=== PATIENT | female | born 1980 | race Caucasian/White ===

== ENCOUNTER 2017-03-08 05:15 | Day surgery (SDC) | payer OTHER ==
[2017-03-05 12:05] LABS: BASOPHILS 0.5 % (0-2); EOSINOPHILS 0.9 % (0-7); HEMATOCRIT 41.3 % (36.0-48.0); HEMOGLOBIN 13.8 g/dL (12-16); IMMATURE GRANULOCYTES 0.1 % (0-5); LYMPHOCYTES 38.4 % (15-50); MCH 29.6 pg (26.0-34.0); MCHC 33.4 g/dL (31.0-37.0); MCV 88.4 fL (80.0-100.0); MEAN PLATELET VOLUME 10.3 fL (7.4-10.4); MONOCYTES 6.4 % (2-11); NEUTROPHILS 53.7 % (40-80); PLATELET COUNT 263 10x3/uL (130-400); RBC 4.67 10x6/uL (4.00-5.40); RDW 14.1 % (11.5-14.5); WBC 7.8 10x3/uL (4.8-10.8)
[2017-03-05 12:15] LABS: APPEARANCE HAZY (CLEAR); COLOR YELLOW (YELLOW)
[2017-03-05 12:16] LABS: BACTERIA MODERATE /hpf (NONE SEEN); BILIRUBIN NEGATIVE (NEGATIVE); GLUCOSE NEGATIVE (NEGATIVE); KETONE NEGATIVE (NEGATIVE); NITRITE NEGATIVE (NEGATIVE); PROTEIN NEGATIVE (NEGATIVE); RED CELLS - URINE 0-5 /hpf (0-5); UROBILINOGEN NORMAL (NORMAL)
[2017-03-05 12:21] LABS: CALC OSMOLALITY 272 mosm/kg (275-300); CALCIUM 9.6 mg/dL (8.5-10.1); CARBON DIOXIDE 29.8 mmol/L (21.0-32.0); CHLORIDE - SERUM 100 mmol/L (98-107); CREATININE - SERUM 0.8 mg/dL (0.6-1.3); GLUCOSE 98 mg/dL (74-106); POTASSIUM - SERUM 3.9 mmol/L (3.5-5.1); SODIUM 136 mmol/L (136-145); UREA NITROGEN 14 mg/dL (7-18); eGFR NON AFRICAN AMERICAN 85 mL/min (90-120)
[2017-03-08 05:47] VITALS: BP 121/66; BMI 34.4
[2017-03-08 06:05] LABS: HCG URINE NEGATIVE (NEGATIVE)
--- NOTE | 2017-03-08 09:32 | NUR ---
0745: DR BIRD IN ROOM, POSTIONED PATIENTS LEGS IN STIRUPS.
--- NOTE | 2017-03-08 10:15 | NUR ---
Pt received to room by bed from recovery, drowsy but does respond to her name and can answer correctly when asked for her birthday. Vss as charted on flowsheet. IV to left ac infusing per order. Abdomen soft to touch with 3 small bandaid noted to umbilical area, lower left quad and right of umbilical. bandage at umbilical center weeping clear fluid, area cleaned with bandage left in place but covered with 4x4 to access further discharge. Gown and top sheet changed at this time and family allowed to room.
[2017-03-08 10:28] VITALS: BP 111/54
--- NOTE | 2017-03-08 10:30 | NUR ---
SCD's bilat and pump turned on. Morphine home health clinical supervisor started and pt demonstrates understanding of use. Rates pain at 10/10 at this time. Ice pack to left lower abd per her request and positioned to that side. side rails up x 2 with phone and call light in reach. Pt mother in law remains at her side. small cup of ice water provided due to no complaint of nausea.
--- NOTE | 2017-03-08 11:30 | NUR ---
Pt is still very drowsy but responds when being spoken to, rates pain at 5/10 at this time. 200ml to liang bag since arrival to room. denies nausea and ask for a sprite to drink. Bed in low position with side rails up x 2 and call light in reach. family at bedside.
--- NOTE | 2017-03-08 12:18 | NUR ---
Called to room, pt asking for assistance to reposition to right lateral. additional pillows used for added comfort. Pt had NC in place at 2L from recovery which is removed at this time. maintains O2 of 98%. Lights out, call light in reach.
--- NOTE | 2017-03-08 13:45 | NUR ---
Pt is more awake but complains of feeling "sleepy" she is tolerating the sprite and water without complaint of nausea but denies wanting anything more at this time. Repositioned to left lateral at which time underpad is noted to be saturated with serous sang fluid that appears to be from vaginal area, verified that liang is still in place. Lashaun care per this rn, pink pad and chux changed pt able to lift her bottom, gown also changed. She is able to turn herself and denies any needs at this time.
[2017-03-08 14:07] VITALS: BP 102/59
--- NOTE | 2017-03-08 14:18 | NUR ---
Pt resting on left side with eyes closed and resp even left undisturbed do to no distress noted. call light with in her reach and side rails up x 2.
--- NOTE | 2017-03-08 15:55 | NUR ---
Called to room with complaint of nausea, cold wet wash cloth provided, tilted to her side and head of bed elevated per request also provided with blue bag. states she is feeling better with slight position change. will call if feels sick again.
--- NOTE | 2017-03-08 17:59 | NUR ---
Upon entering room pt is sitting up in bed positioned on her back, she complains of increase nausea, suggested that she tilt off her back to decrease that feeling. Tilts to left side per self with verbal relief. New bag of LR 1000ml hung per orders and ivac volumes cleared. Del Valle cath remains inplace to gravity flow, emptied 1500ml clear urine. No vaginal discharge at this time, parish pads are clean and dry. Pt rates her pain at 2/10 and request something to eat, clear liquid tray ordered.
--- NOTE | 2017-03-08 18:30 | NUR ---
clear liquid tray per dietary
[2017-03-08 19:23] VITALS: BP 115/75
--- NOTE | 2017-03-08 19:23 | NUR ---
RN TO PT BS FOR STEPHY. PT RESTING IN BED IN HIGH FOWLERS POSITION, IN NO ACUTE DISTRESS. RESPIRATIONS EVEN AND UNLABORED. PT IS A 36YO FEMALE S/P LAVH TODAY WITH DR. BIRD. AAOX3. HR REGULAR AT THIS TIME WITH OCCASIONAL TACHYCARDIA NOTED. LUNGS CTAB. ABDOMEN SOFT AND NON TENDER. BS HYPOACTIVE TIMES 4. PT STATES SHE IS PASSING GAS AND IS BELCHING. 3 LAPROSCOPIC INCISIONS NOTED TO ABDOMEN. BANDAIDS IN PLACE. INCISION @ UMBILICUS WITH PRESSURE DRESSING APPLIED BY AM SHIFT. SMALL AMOUNT OF WATERY BLOOD TINGED DRAINAGE NOTED FROM VAGINA. HASSAN IN PLACE AND DRAINING CLEAR YELLOW URINE. SCD'S IN PLACE TO LOWER EXTREMITIES BILATERALLY. NO SWELLING NOTED TO UPPER OR LOWER EXTREMITIES BILATERALLY. LR INFUSING VIA PUMP AT 125 CC/HR AND MORPHINE FREELANCE WRITER INFUSING VIA PUMP TO EXISTING 22G IV IN LEFT AC. NO REDNESS OR EDEMA NOTED TO SITE. PT C/O NAUSEA AT THIS TIME. ZOFRAN 4MG PROVIDED IVP. PT ATTEMPTING TO TOLERATE CLEAR LIQUID DIET BUT IS HAVING DIFFICULTY WITH NAUSEA AND VOMITTING WHEN EATING. ENCOURAGED PT TO TAKE SMALL SIPS, VERBALIZED UNDERSTADING. PT RATES PAIN 2/10 AT THIS TIME. BED IN LOW POSITION, SIDE RAILS UP TIMES 2, CALL LIGHT AND PHONE IN REACH. NO FAMILY AT THIS BEDSIDE AT THIS TIME. WILL CONT TO MONITOR PT STATUS.
[2017-03-08 19:30] VITALS: BP 102/59; BMI 34.4
--- NOTE | 2017-03-08 21:00 | NUR ---
RN TO PT BS. PT TURNED AND SUPPORTED TO RIGHT TILT POSITION. CHUX AN TOWEL CHANGED. SMALL AMOUNT OF BLOOD TINGED WATERY DISCHARGE NOTED. PT DENIES ANY FURTHER NEEDS AT THIS TIME. BED IN LOW POSITION, SIDE RAILS UP TIMES 2, CALL LIGHT AND PHONE IN REACH. WILL CONT TO MONITOR PT STATUS.
--- NOTE | 2017-03-08 21:28 | NUR ---
PT. CALLED REQUESTING ASSISTANCE TO TURN. MINIMAL ASSISTANCE TO TURN FROM BACK TO LT SIDE. POSITIONED WITH PILLOWS. PT. STATES SHE IS UNCOMFORTABLE AND HAS ALREADY PUSHED TRAFFIC SIGNAL SUPERVISOR MAINTENANCE BUTTON. STATES SHE THINKS POSITION CHANGE WILL HELP.
[2017-03-08 23:15] VITALS: BP 129/65
--- NOTE | 2017-03-08 23:16 | NUR ---
RN TO PT BS. VS TAKEN, WNL. I&O'S PERFORMED, WNL. PT ASSISTED TO TURN AND SUPPORT TO BACK. PT POSITIONED FOR COMFORT. PT DENIES ANY NEEDS AT THIS TIME. BED IN LOW POSITION, SIDE RAILS UP TIMES 2, CALL LIGHT AND PHONE IN REACH. WILL CONT TO MONITOR PT STATUS.
--- NOTE | 2017-03-09 00:29 | NUR ---
RN TO PT BS FOR ROUNDS. PT RESTING IN BED IN SEMI-FOWLERS POSITION, IN NO ACUTE DISTRESS. PT DENIES ANY NEEDS AT THIS TIME. BED IN LOW POSITION, SIDE RAILS UP TIMES 2, CALL LIGHT AND PHONE IN REACH. WILL CONT TO MONITOR PT STATUS.
--- NOTE | 2017-03-09 02:38 | NUR ---
RN TO PT BS. PT RESTING IN BED IN SEMI-FOWLERS POSITION, IN NO ACUTE DISTRESS. NEW BAG OF LR HUNG TO INFUSE VIA PUMP AT 125CC/HR. MORPHINE ELECTRONICS TECHNICIAN APPRENTICE SYRINGE CHANGED. APPLE JUICE PROVIDED TO PT AT THIS TIME. ASSISTED PT IN POSITIONING SELF IN BED. PT DENIES ANY FURTHER NEEDS AT THIS TIME. BED IN LOW POSITION, SIDE RAILS UP TIMES 2, CALL LIGHT AND PHONE IN REACH. WILL CONT TO MONITOR PT STATUS.
--- NOTE | 2017-03-09 04:04 | NUR ---
RECEIVED CALL FROM DR. BIRD. PER , D/C HASSAN AT THIS TIME AND D/C MORPHINE DIGITAL CARTOGRAPHER. PT MAY HAVE PERCOCET 5 FOR MODERTE PAIN AND PERCOCET 10 FOR SEVERE PAIN. PT TO AMBULATE WHEN NEED ARISES TO VOID. ORDERS PLACED AND NOTED.
[2017-03-09 04:48] VITALS: BP 114/66
--- NOTE | 2017-03-09 04:49 | NUR ---
RN TO PT BS. POC DISCUSSED WITH PT AND QUESTIONS ANSWERED. VS TAKEN, WNL. HASSAN REMOVED, TIP INTACT, 1600 CC CLEAR YELLOW URINE EMPTIED FROM BAG. IV SALINE LOCKED, MORPHINE RICE CLEANING MACHINE TENDER D/C'D. PAIN MEDICATION SCHEDULE DISCUSSED WITH PT, QUESTIONS ANSWERED. PT AMBULATED TO BR WITH MINIMAL ASSISTANCE. PT UNABLE TO VOID AT THIS TIME. PT CLEANED SELF WITH WET WASHCLOTHES. CECI PAD AND PANTIES PLACED. CLEAN GOWN PLACED. COMPLETE LINEN CHANGE TO BED BY RN. PT AMBULATED TO BED WITH MINIMAL ASSISTANCE. PT DESIRES TO SIT ON EDEGE OF BED. FRESH SPRITE PROVIDED TO PT AND SALITINES PROVIDED TO PT AT THIS TIME. PT DENIES ANY FURTHER NEEDS. BED IN LOW POSITION, SIDE RAILS UP TIMES 2, CALL LIGHT AND PHONE IN REACH. WILL CONT TO MONITOR PT STATUS.
--- NOTE | 2017-03-09 05:08 | NUR ---
RN TO PT BS FOR ROUNDS. PT RESTING IN BED IN LEFT TILT POSITION, IN NO ACUTE DISTRESS. PT ASSISTED WITH COMFORT IN BED. PT DENIES ANY FURTHER NEEDS AT THIS TIME. BED IN LOW POSITION, SIDE RAILS UP TIMES 2, CALL LIGHT AND PHONE IN REACH. WILL CONT TO MONITOR PT STATUS.
--- NOTE | 2017-03-09 07:04 | NUR ---
PT CALLS ON LIGHT. STATES VOIDED. 200 ML OF BLOOD-TINGED URINE NOTED IN SPECIPAN. PT C/O RIGHT SIDE PELVIC PAIN OF "8" ON 0-10 PAIN SCALE. PERCOCET 10/325 GIVEN PO ORDERED. PT INSTRUCTED ON MED. VERBALIZES UNDERSTANDING.
[2017-03-09 07:13] VITALS: BP 105/57
--- NOTE | 2017-03-09 07:23 | NUR ---
ASSESSMENT DONE. VERBAL RESPONSES APPRO TO QUESTIONS. PT STATES WAS UP TO BATHROOM - EMPTIED 200 CC URINE FROM CONTAINER. BREAKSFAST SERVED- PT SITS ON SIDE OF BED TO EAT BREAKFAST.
--- NOTE | 2017-03-09 07:34 | OP ---
PATIENT NAME: DANIELLE MEJIA MEDICAL RECORD: [id number] :76 LOCATION:[id number] ADMISSION DATE: SURGEON: FREDDIE BIRD MD DATE OF OPERATION: 03/08/2017 PREOPERATIVE DIAGNOSIS: Chronic pelvic pain. POSTOPERATIVE DIAGNOSIS: Active endometriosis, peritoneum. PROCEDURE PERFORMED: Laparoscopically-assisted vaginal hysterectomy with bilateral salpingo-oophorectomy. SURGEON: Freddie Bird MD APPLICATION INTEGRATION SPECIALIST: Dr. Chery SECURITY PUBLIC SAFETY OFFICER: Dg Quintanilla ANESTHESIOLOGIST: Dr. Pagan ANESTHESIA: General anesthetic with endotracheal intubation. FINDINGS: Uterus is retroverted and otherwise unremarkable. Tubes and ovaries are unremarkable. Active endometriosis is noted on the peritoneum. SPECIMENS REMOVED: Uterus with tubes and ovaries. Specimen disposition, pathology. ESTIMATED BLOOD LOSS: 300 cc. FLUIDS: 900cc lactated Ringer's. URINE OUTPUT: Quantity sufficient prior to the procedure, catheter placed post-procedure. COMPLICATIONS: None. DRAINS: Del Valle to gravity. INDICATIONS: The patient is a 36-year-old female with undesired fertility. Conservative management for pelvic pain, which has failed. The patient has a previous diagnostic laparoscopy showing active endometriosis. The patient has been counseled and has been offered medical management. The patient desires definitive treatment for pelvic pain and a history of endometriosis. DESCRIPTION OF PROCEDURE: After informed consent was assured, the patient was taken to the operating room, anesthetic was obtained without difficulty. The patient was prepped and draped in the usual sterile fashion after being placed in Bin stirrups. Incision was made in the umbilicus to accommodate a 5-mm trocar, which was inserted without difficulty. The pneumoperitoneum was developed and the patient was placed in Trendelenburg position. Accessory ports were placed in right and left lower quadrants. Through the right lower quadrant port, a grasper was introduced and the ovary elevated on the left side. The infundibulopelvic ligament was serially compressed, coagulated, and with PK technology gyrus dissector. This dissection was carried out underneath OPERATIVE REPORT [id number] DANIELLE MEJIA the ovary across the round ligaments and the broad ligament was opened. The anterior leaf of the broad ligament was opened and the bladder flap developed across the midline. The posterior leaflet was opened and dissection was discontinued. The dissection begins on the right. With the right tube elevated from the left, infundibulopelvic ligament was compressed, coagulated, and . The dissection again was carried out under the ovary across the round ligament, then to the level of the internal os. The bladder flap was now fully developed and then attention was directed to the vagina. With a sterile sheet covering the instruments on the abdomen, the legs were positioned and the weighted speculum introduced in the vagina. Barbara tenaculums were used to grasp the cervix and using Bovie cautery the mucosa overlying the cervix was opened. This opening circled the cervix. The posterior cul-de-sac was now entered sharply with scissors and a stitch applied to the peritoneum to the mucosa. Using Eric clamps, the uterosacral ligaments were isolated in the right and left side. These were tied with a Eric stitch and held in hemostats to be used later in the procedure. Attention was directed anteriorly where the bladder was mobilized and anterior pouch entered. The remaining portion of the cardinal ligaments serially clamped, cut and tied until the last pedicle was reached. At this point, a [id number] stitch was applied to obtain hemostasis on both right and left sides. The peritoneum was then reapproximated to the mucosa using 3-0 Vicryl. After this was performed, 0 Vicryl was now used to close the cuff in an interrupted fashion from anteriorly to posteriorly. Once the level of the uterosacral ligaments were reached, a stitch was passed through the posterior cuff through the left uterosacral ligament across the peritoneum of the cul-de-sac out through the right uterosacral ligament and into the vagina. This was grasped to be used later in the procedure. The uterosacral ligaments were plicated now in the midline with the before mentioned stitch that was held with a hemostat. The mucosa was closed over this until the vaginal cuff comes to completely close. The stitch, which was passed through the posterior vault was now tied securing the uterosacral ligaments to the vaginal cuff. Pneumoperitoneum was reestablished. Pelvis copiously irrigated and irrigant removed. Small bleeding vessels noted on the right uterosacral and this was cauterized with the PK technology gyrus dissector. Once this has been performed, the pelvis again was irrigated, irrigant removed and the pneumoperitoneum released. The ports were removed under direct visualization as the pneumoperitoneum was released. Skin was reapproximated with subcuticular stitch and sterile dressing applied. Sponge, lap and needle counts correct times 2. TRANSINT:[id number] Voice Confirmation ID: [id number] DOCUMENT ID: [id number] FREDDIE BIRD MD at 0734 CC: [id number] DICTATION DATE: 03/08/17 0933 HORN PLAYER: 03/08/17 1209 [facility] [address] [id number]
--- NOTE | 2017-03-09 09:04 | NUR ---
RINGS CALL LIGHT. ENTERED ROOM. PT ASK IF PERCOCET "CAN MAKE A PERSON DIZZY" EXPLAINED YES- INSTRUCTED TO GET UP SLOWLY AND TO CALL FOR ASSISTANCE IF NEEDED. PT STATES THAT SHE WANTS TO REST-SLEEP. PT STATES THAT DR BIRD SAID TO STATES AND HAVE LUNCH BEFORE DISCHARGE. DENIES OTHER NEEDS. STATES WANTS TO TAKE A NAP AT THIS TIME.
[2017-03-09] MEDS ORDERED: ESTRACE2 MG PO (09:17)
[2017-03-09] MEDS ORDERED: IBUPROFEN800 MG PO (09:18)
[2017-03-09] MEDS ORDERED: PERCOCET 7.5/321 TAB PO (09:19)
--- NOTE | 2017-03-09 11:00 | NUR ---
REQUESTING PAIN MEDICATION. RATES PAIN A 4 ON SCALE OF 1-10. STATES PAIN IS MORE ON LT SIDE OF ABD. MEDICATION BEING GIVEN.
--- NOTE | 2017-03-09 11:11 | NUR ---
IV SALINE LOCK REMOVED- CATH TIP INTACT.
--- NOTE | 2017-03-09 11:30 | NUR ---
REG DIET SERVED.
--- NOTE | 2017-03-09 12:00 | NUR ---
UP TO SHOWER- TOLERATED WELL. FAMILY IN ROOM.
--- NOTE | 2017-03-09 13:00 | NUR ---
PT CALLS ON LIGHT. C/O NAUSEA. DR BIRD NOTIFIED OF PT C/O. NEW ORDER RECEIVED.
--- NOTE | 2017-03-09 13:27 | NUR ---
RESTING IN BED- NO EMESIS BUT STATES THAT HAS SOME NAUSEA. MED GIVEN FOR NAUSEA.
--- NOTE | 2017-03-09 13:30 | NUR ---
PRESCRIPTIONS X 3 GIVEN TO PT. AND PT INFORMED THAT DR BIRD HAS PHONED IN A PRESCRIPTION FOR REGLAN AT HER LISTED PHARMACY. PT CARE SUMMARY GIVEN. HOSPITAL DISCHARGE INST GIVEN. PFW POST OP HYST INST GIVEN. PT MED REC GIVEN. PT DENIES QUESTIONS AFTER READING OVER MATERIAL.
--- NOTE | 2017-03-09 13:52 | NUR ---
TO AUTO VIA W/C WITH PT MOTHER IN ATTENDANCE AND TO DRIVE PT HOME.
--- NOTE | 2017-03-10 18:06 | DS ---
PATIENT:DANIELLE MEJIA :76 MEDICAL RECORD: [id number] DISCHARGE SUMMARY ADMISSION DATE: 03/08/17 DISCHARGE DATE: 03/09/17 ADMISSION DIAGNOSIS: Pelvic pain. DISCHARGE DIAGNOSIS: Endometriosis. PROCEDURE PERFORMED WHILE HOSPITALIZED: Laparoscopically assisted vaginal hysterectomy with bilateral salpingo-oophorectomy. ATTENDING: Alize Bird MD HISTORY OF PRESENT ILLNESS AND INDICATION FOR ADMISSION: See the H&P in the chart. SUMMARY OF HOSPITALIZATION: The patient was admitted and underwent procedure without difficulty. On postoperative day #1, she was voiding without difficulty and tolerating regular diet. The patient will be discharged home on Percocet and Motrin for pain management. Side effects of these medications have been discussed with the patient. Precautions have been reviewed. She will follow up in the clinic in 2 weeks. TRANSINT:[id number] Voice Confirmation ID: [id number] DOCUMENT ID: [id number] ALIZE BIRD MD at 1806 CC: [id number] DICTATION DATE: 03/09/17 0739 PERLITE GRINDER: 03/09/17 1210 [facility] 03/09/[id number] [place] [address]
== END 2017-03-09 14:00 | disposition home or self-care (01) ==
LOC: D.OPS 05:15 → D.PAN 07:30 → D.LD 09:34 → D.OPS 03-09 14:00
PROVIDERS: Obstetrics & Gynecology
DX: N80.3 Endometriosis of pelvic peritoneum (principal); N85.4 Malposition of uterus; N72 Inflammatory disease of cervix uteri; D25.1 Intramural leiomyoma of uterus; N83.11 Corpus luteum cyst of right ovary; N83.01 Follicular cyst of right ovary; N83.8 Other noninflammatory disorders of ovary, fallopian tube and broad ligament; Z01.812 Encounter for preprocedural laboratory examination